=== PATIENT | female | born 1975 | race Caucasian/White ===

== ENCOUNTER 2021-04-01 11:02 | Emergency (ER) | payer OTHER ==
[2021-04-01 13:08] LABS: HEMOGLOBIN 12.1 gm/dl (12.3-15.3); RED BLOOD COUNT 4.3 M/UL (4.00-5.10); WHITE BLOOD COUNT 16.6 K/UL (4.5-11.0)
[2021-04-01 13:36] LABS: BUN/CREATININE RATIO 22 (0-10)
== END 2021-04-01 14:22 | disposition home or self-care (01) ==
LOC: ER1 11:02
PROVIDERS: Student in an Organized Health Care Education/Training Program
DX: G43.909 Migraine, unspecified, not intractable, without status migrainosus (principal); E11.9 Type 2 diabetes mellitus without complications; Z88.5 Allergy status to narcotic agent
CPT/HCPCS: 80048; 85025; 96374; 96375; 99284; J0780; J1885

== ENCOUNTER → 2021-04-02 | Outpatient (CLI) | payer OTHER | LOC: KOH-I 15:00 | DX: G43.009 Migraine without aura, not intractable, without status migrainosus (principal) | CPT/HCPCS: 70450 ==